=== PATIENT | female | born 1985 | race Caucasian/White ===

== ENCOUNTER 2018-05-02 16:22 | Emergency (ER) | payer SELFPAY ==
[2018-05-02] MEDS ORDERED: Tetracaine 0.5% OPHTH SOLN/PF 4 ML BOT ONE (16:32)
== END 2018-05-02 17:20 | disposition home or self-care (01) ==
LOC: MADERS 16:22
DX: H10.9 Unspecified conjunctivitis (principal); F17.210 Nicotine dependence, cigarettes, uncomplicated
CPT/HCPCS: 99282

== ENCOUNTER 2021-04-22 07:11 | Emergency (ER) | payer MEDICAID, SELFPAY | END 2021-04-22 08:15 | disposition home or self-care (01) | LOC: MADERS 07:11 | DX: O98.519 Other viral diseases complicating pregnancy, unspecified trimester (principal); B34.9 Viral infection, unspecified; O09.90 Supervision of high risk pregnancy, unspecified, unspecified trimester | CPT/HCPCS: 99283 ==

== ENCOUNTER 2022-08-18 07:45 | Emergency (ER) | payer OTHER ==
[2022-08-18] MEDS ORDERED: Ketorolac Tromethamine 60 MG/2 ML VIAL ONE (08:15)
[2022-08-18] MEDS ORDERED: Orphenadrine Citrate 60 MG/2 ML VIAL ONE (08:22)
== END 2022-08-18 08:47 | disposition home or self-care (01) ==
LOC: MADERS 07:45
DX: M54.50 Low back pain, unspecified (principal)
CPT/HCPCS: 96372; 99283; J1885; J2360